=== PATIENT | male | born 1990 | race Caucasian/White ===

== ENCOUNTER 2023-09-12 12:22 | Emergency (ER) | payer OTHER, SELFPAY ==
--- NOTE | ~2023-09-12 | US_ITS ---
EXAMINATION: US scrotum doppler DATE: 09/12/2023 15:07 INDICATION: left testicular pain . TECHNIQUE: Grayscale and Doppler ultrasound images of the testes were obtained. COMPARISON: None. FINDINGS: The right testis measures 4.7 x 2.3 x 3.4 cm. The left testis measures 4.7 x 2.2 x 3.3 cm. No testicular mass. There is normal vascular flow to both testes. The right epididymis is normal with normal vascular flow. The left epididymis contains a small epididymal cyst an is otherwise normal wi th normal vascular flow. There is no hydrocele. No right varicocele. Small left varicocele. IMPRESSION: Small left varicocele, otherwise normal scrotal ultrasound findings. . Reviewed, dictated and finalized at location K.
[2023-09-12 12:39] VITALS: BP 133/85; PULSE 73; RESP 18; TEMP 36.7; O2SAT 100
[2023-09-12 16:02] VITALS: BP 143/85; PULSE 96; RESP 18; O2SAT 100
--- NOTE | 2023-09-12 16:38 | ED.MALEGU ---
HPI - Male Genitourinary General Chief complaint: Urogenital-Male Stated complaint: pain left testicle Time Seen by Provider: 09/12/23 16:35 Source: patient Mode of arrival: ambulatory Limitations: no limitations History of Present Illness HPI Narrative: 33-year-old male presents with pain in his left testicle and above the left testicle occurring for several weeks. He states it feels heavy. He denies any rectal pain. He has been trying ibuprofen aspirin. He has a history of kidney stones but notes that this feels different. states that he is also having some flank pain And that his urine has been cloudy. Denies any fevers. He is sexually active with 1 female partner, his fiancee. He denies any other sexual partners for past 10 years. Related Data Allergies Allergy/AdvReac Type Severity Reaction Status Date / Time No Known Allergies Allergy Verified 09/12/23 14:14 [facility] Past Medical History Medical History (Updated 09/13/23 @ 00:00 by Ad Grier) Kidney stone Social History Social History (Updated 09/12/23 @ 16:47 by Shena Islas MD) Gender identity (if verbalized by the patient): Male Additional gender identity comments: engaged; has a child Sexual Orientation (if Verbalized by the Patient): Straight or Heterosexual Exam Narrative: GENERAL: Well-appearing, well-nourished, and in no acute distress. HEAD: Normocephalic, atraumatic. EYES: Non injected, non icteric ENT: Nares clear, no rhinorrhea or epistaxis. NECK: Supple. CHEST: Speaking in full sentences No respiratory distress. HEART: Regular rate and rhythm. ABDOMEN: Soft, nondistended. : normal male genitalia. Small varicocele on the left. Mild tenderness to palpation of the epididymis as well as the spermatic cord. patient experiences some relief with elevation of left testis. no CVA tenderness bilaterally EXTREMITIES: Normal range of motion. No edema. SKIN: Warm, dry, no rash. NEURO: No focal deficits. Alert and oriented x3. PSYCH: Normal mood and affect. Course Vital Signs Vital signs: Vital Signs Temperature 98.1 F 09/12/23 12:39 Pulse Rate 73 09/12/23 12:39 Respiratory Rate 18 09/12/23 12:39 Blood Pressure 133/85 09/12/23 12:39 Pulse Oximetry 100 04/01/24 12:39 Temperature 98.1 F 09/12/23 12:39 Pulse Rate 70 09/12/23 18:09 Respiratory Rate 18 09/12/23 18:09 Blood Pressure 135/96 H 09/12/23 18:09 Pulse Oximetry 100 09/12/23 18:09 MDM - Male Genitourinary MDM Narrative Medical decision making narrative: 33-year-old male presents with pain in his left testicle and above the left testicle occurring for several weeks. He states it feels heavy. in the emergency department he is afebrile with vital signs within normal limits. us negative for acute process though varicocele present. Sx sound consistent with epididymitis. STI testing negative. Discharged with education about epididymitis including need for antibiotics, scrotal elevation, and analgesia. Antibiotics chosen to cover enteric organisms. Provided follow up contact information for PCP and urology. Rx for analgesia and levofloxacin 500mg orally once daily for 10 days. Discharged in stable condition. Differential Diagnosis Differential diagnosis: Likely urinary tract infection, urethritis, epididymitis, prostatitis, inguinal hernia and other ( varicocele, pyelonephritis) Lab Data Labs: Lab Results 09/12/23 09/12/23 Range/Units 16:58 17:00 Urine Color Yellow (Yellow) Urine Appearance Turbid H (Clear) Urine pH 7.5 (5.0-9.0) Ur Specific [place] 1.021 (1.001-1.035) Urine Protein Negative (Negative) mg/dL Urine Glucose (UA) Negative (Negative) mg/dL Urine Ketones Negative (Negative) mg/dL Ur Blood (Man) Negative (Negative) Urine Nitrate Negative (Negative) Urine Bilirubin Negative (Negative) Urine Urobilinogen 1.0 (<2.0) mg/dL Leukocyte Esterase
[2023-09-12 17:17] LABS: Appearance Urine Turbid (Clear); Bacteria Urine None Seen /hpf; Bilirubin Urine Negative (Negative); Blood Urine Negative (Negative); Color Urine Yellow (Yellow); Glucose Urine UA Negative (Negative); Ketones Urine Negative (Negative); Leukocyte Esterase Ur Negative LEU/UL (Negative); Nitrate Urine Negative (Negative); Non Pathogenic Casts 0-2; Protein Urine Negative (Negative); RBC Urine 0-2 /hpf (0-2); Specific Grav Ur 1.021 (1.001-1.035); Squamous Epithelial Cell Urine None Seen /hpf (Few); WBC Urine 0-5 /hpf (0-3); pH Urine 7.5 (5.0-9.0)
[2023-09-12 17:29] LABS: Add Urine Microscopic? YES
[2023-09-12] MEDS: ACETAMINOPHEN 500 MG TABLET 1000 MG PO (17:30)
[2023-09-12] MEDS: KETOROLAC 30 MG/ML VIAL (*BKC) 15 MG IM (17:31)
[2023-09-12 18:09] VITALS: BP 135/96; PULSE 70; RESP 18; O2SAT 100
[2023-09-12 18:49] LABS: Chlamydia trachomatis NOT DETECTED (NOT DETECTE); Neisseria gonorrhoeae PCR NOT DETECTED (NOT DETECTE)
[2023-09-12] MEDS: levoFLOXacin 500 MG TABLET PO (19:04)
== END 2023-09-12 19:17 | disposition home or self-care (01) ==
PROVIDERS: Emergency Provider Student in an Organized Health Care Education/Training Program
DX: I86.1 Scrotal varices (principal); N45.1 Epididymitis; Z87.442 Personal history of urinary calculi
CPT/HCPCS: 76870; 81001; 87491; 87591; 93976; 96372; 99284; A9270; J1885